=== PATIENT | female | born 1965 | race Caucasian/White ===

== ENCOUNTER 2016-06-25 11:06 | Observation (INO) | payer OTHER ==
[~2016-06-25] VITALS: Ht 167.6 cm; Wt 64.9 kg
[~2016-06-25 11:06] MED LIST: ABL/5 PO; ASCO10003 PO; CARB0.5D OPB; FLUO10CA48 PO; FLUT0.15 NAE; GABA-113 PO; HYDR2.5O TOP; LEVO112T18 PO; LORA5TAB3 PO; LTRCR30 TOP; MELA3TAB12 PO; MODA100T17 PO; MULT-513 PO; NAPR-1169 PO; OMEP20CA9 PO; TRAM-10 PO; TRIA0.5C4 TOP; VNTHFA/IN INH; ZNTT/150 PO; [UNRECOGNIZED DRUG - CODE] TOP
[2016-06-25] MEDS ORDERED: ONDANSETRON INJ 2 MG/ML 2 ML VIAL IV STA (11:17)
[2016-06-25] MEDS ORDERED: SODIUM CHLORIDE 0.9% 1000ML 1,000 ML IV STA (11:17)
--- NOTE | 2016-06-25 11:21 | EMERGENCY ROOM VISIT NOTE ---
History First contact with patient: 11:12 Chief Complaint: VOMITING Stated Complaint: VOMITING Nursing Triage Summary: Pt arrives to ER via BLS with sudden onset nausea/vomitting that began this morning while walking downtown. No other complaints. Denies recent illness. History of Present Illness The patient is a 50 year old female who presents to the Emergency Room with complaints of dizziness, nausea and vomiting. The patient states that she developed dizziness, nausea and vomiting today. She states that the dizziness is constant. She denies any earache, sore throat, cough, fever, neck pain, neck stiffness. She denies any pain in her chest or trouble breathing. She denies any abdominal pain. She denies any urinary symptoms. She denies any headache, numbness, tingling or weakness in the upper or lower extremities. The patient does have a history of CLL. She is not currently receiving treatment. Review of Systems A 10 system review of systems was completed with positives and pertinent negatives listed in the HPI. Past Medical/Surgical History Medical Problems: (1) Anxiety (2) Chronic Lymphoid Leukemia, W/O Mention Achieved Remission (3) CLL (chronic lymphocytic leukemia) (4) Depression (5) Depressive Disorder Nec (6) Diverticulosis Sml Intestine (W/O Ment Of [place]) (7) Esophageal Reflux (8) GERD (gastroesophageal reflux disease) (9) Hypothyroidism (10) Hypothyroidism Nos (11) Lumbago (12) Tobacco Use Disorder Surgical Problems: (1) H/O cystoscopy (2) Status post excision of vocal cord nodule Social History Smoking Status: Never Smoker Alcohol Use: none Marital Status: single Occupation Status: employed Current/Historical Medications Scheduled Ascorbic Acid (Vitamin C), 1,000 MG PO DAILY Clotrimazole (Lotrimin 1%), 1 APPLN TOP UD Fluoxetine (Prozac), 10 MG PO DAILY Fluticasone Propionate (Nasal) (Flonase Allergy Relief), 2 SPRAY DANYELLE DAILY Gabapentin (Neurontin), 300 MG PO DAILY Levothyroxine Sodium (Levothyroxine Sodium), 1 TAB PO DAILY Melatonin-Pyridoxine (Melatonin), 0.5 MG PO HS Modafinil (Provigil), 100 MG PO DAILY Multivitamins/Minerals (Mvi With Minerals), 1 TAB PO DAILY Omeprazole (Prilosec), 20 MG PO DAILY Probiotic Product (Align), 1 CAP PO DAILY Ranitidine (Zantac), 150 MG PO DAILY Triamcinolone Acet (Triamcinolone Acetonide), 1 APPLN TOP PRN UD Ziprasidone Hcl (Geodon), 1 CAP PO DAILY Scheduled PRN Albuterol Hfa (Ventolin Hfa), 2 PUFFS INH QID PRN for SOB/Wheezing Betamethasone Dipropionate Aug (Augmented Betamethasone D), 1 APPLN TOP BID PRN for HANDS Dicyclomine Hcl (Dicyclomine Hcl), 1 CAP PO BID PRN for abdominal pain Hydrocortisone (Topical) (Hydrocortisone), 1 APPLN TOP HS PRN for RASH Loratadine & Pseudoephedrine (Claritin-D 12 Hour), 1 TAB PO BID PRN for Nasal Congestion Naproxen (Naprosyn), 500 MG PO BID PRN for Pain Tramadol (Ultram), 50 MG PO BID PRN for Pain Allergies Coded Allergies: Ferrous Sulfate (Verified Allergy, Unknown, RASH, 06/25/16) INFO FROM [facility] [place] Isoniazid (Verified Allergy, Unknown, 06/25/16) Physical Exam Vital Signs Date Time Temp Pulse Resp B/P Pulse Ox O2 Delivery O2 Flow Rate FiO2 06/25/16 13:14 75 18 123/72 100 Room Air 06/25/16 11:10 36.4 82 16 134/97 99 Room Air Physical Exam VITALS: Vitals are noted on the nurse's note and reviewed by myself. Vital signs stable. GENERAL: This is a 50-year-old female, in no acute distress, nondiaphoretic, well-developed well-nourished. SKIN: The skin was diaphoretic and pale without rashes, erythema, edema, or bruising. There is no tenting of the skin. Capillary reflex less than 2 seconds. HEAD: Normocephalic atraumatic. EARS: External auditory canals clear, tympanic membranes pearly orozco without erythema or effusion bilaterally. EYES: Pupils equal round and reactive to light and accommodation. Conjunctivae without injection, sclerae without icterus. Extraocular movements intact. There is significant horizontal nystatin this. NOSE: Patent, turbinates without inflammation or discharge. MOUTH: Mucous membranes moist. Tonsils are not enlarged. Pharynx without erythema or exudate. Uvula midline. Airway patent. Tongue does not deviate. NECK: Supple without nuchal rigidity. No JVD. HEART: Regular rate and rhythm without murmurs gallops or rubs. LUNGS: Clear to auscultation bilaterally without wheezes, rales or rhonchi. No retractions or accessory muscle use. ABDOMEN: Positive bowel sounds x 4. Soft, nontender, without masses or organomegaly. MUSCULOSKELETAL: No muscle atrophy, erythema, or edema noted. Full range of motion in all extremities. Strength 5/5 throughout. NEURO: Patient was alert and oriented to person place and time. The patient was difficult to perform a formal neurologic examination. She was not cooperative because she stated she was not feeling well. Heel oliveros testing seem to be intact. The patient was not able to perform pronator drift because of vomiting and "not feeling well." Cranial nerves II through XII grossly intact. No focal neurological deficits. Medical Decision & Procedures ER Provider Diagnostic Interpretation: CT HEAD WITHOUT CONTRAST (CT) CLINICAL HISTORY: Dizziness, nausea, vomiting, history of lymphoma. COMPARISON STUDY: 03/16/2010 TECHNIQUE: Axial CT of the brain is performed from the vertex to the skull base. IV contrast was not administered for this examination. CT DOSE: 998.18 mGy.cm FINDINGS: No intra or extra-axial mass lesions are visualized. There is no CT evidence of acute cortical infarction. There is no evidence of midline shift. There is no acute hemorrhage. No calvarial fractures are visualized. There are stable minor white matter hypodensities likely on a small vessel or demyelinating basis. There is no evidence of pathologic ventricular dilatation. There is no evidence of acute sinusitis IMPRESSION: No acute intracranial findings [~ rep ct add3]] CHEST ONE VIEW PORTABLE CLINICAL HISTORY: dizziness, vomiting COMPARISON STUDY: 03/30/2010 FINDINGS: The cardiac and mediastinal contours are normal. There is no evidence of focal pulmonary consolidation. There is no evidence of failure. No pleural effusions are visualized.[ IMPRESSION: No active disease in the chest. Laboratory Results 06/25/16 11:20 Red Blood Count 4.85, Mean Corpuscular Volume 85.8, Mean Corpuscular Hemoglobin 28.2, Mean Corpuscular Hemoglobin Concent 32.9, Mean Platelet Volume 11.4, Neutrophils (%) (Auto) 15.6, Lymphocytes (%) (Auto) 81.2, Monocytes (%) (Auto) 2.7, Eosinophils (%) (Auto) 0.2, Basophils (%) (Auto) 0.2, Neutrophils # (Auto) 5.96, Lymphocytes # (Auto) 31.19, Monocytes # (Auto) 1.05, Eosinophils # (Auto) 0.07, Basophils # (Auto) 0.07 06/25/16 11:20 Test 06/25/16 11:20 White Blood Count 38.39 K/uL (4.8-10.8) Red Blood Count 4.85 M/uL (4.2-5.4) Hemoglobin 13.7 g/dL (12.0-16.0) Hematocrit 41.6 % (37-47) Mean Corpuscular Volume 85.8 fL (80-100) Mean Corpuscular Hemoglobin 28.2 pg (25-34) Mean Corpuscular Hemoglobin Concent 32.9 g/dl (32-36) Platelet Count 218 K/uL (130-400) Mean Platelet Volume 11.4 fL (7.4-10.4) Neutrophils (%) (Auto) 15.6 % Lymphocytes (%) (Auto) 81.2 % Monocytes (%) (Auto) 2.7 % Eosinophils (%) (Auto) 0.2 % Basophils (%) (Auto) 0.2 % Neutrophils # (Auto) 5.96 K/uL (1.4-6.5) Lymphocytes # (Auto) 31.19 K/uL (1.2-3.4) Monocytes # (Auto) 1.05 K/uL (0.11-0.59) Eosinophils # (Auto) 0.07 K/uL (0-0.5) Basophils # (Auto) 0.07 K/uL (0-0.2) RDW Standard Deviation 41.1 fL (36.4-46.3) RDW Coefficient of Variation 13.3 % (11.5-14.5) Immature Granulocyte % (Auto) 0.1 % Immature Granulocyte # (Auto) 0.05 K/uL (0.00-0.02) Smudge Cells PRESENT Prothrombin Time 10.9 SECONDS (9.0-12.0) Prothromb Time International Ratio 1.0 (0.9-1.1) Activated Partial Thromboplast Time 23.3 SECONDS (21.0-31.0) Partial Thromboplastin Ratio 0.9 Anion Gap 7.0 mmol/L (3-11) Est Creatinine Clear Calc Drug Dose 76.6 ml/min Estimated GFR () 95.3 Estimated GFR (Non- 82.2 BUN/Creatinine Ratio 19.5 (10-20) Estimated Average Glucose 126 mg/dl Hemoglobin A1c 6.0 % (4.5-5.6) Calcium Level 8.2 mg/dl (8.5-10.1) Magnesium Level 2.3 mg/dl (1.8-2.4) Total Bilirubin 0.5 mg/dl (0.2-1) Aspartate Amino Transf (AST/SGOT) 20 U/L (15-37) Alanine Aminotransferase (ALT/SGPT) 23 U/L (12-78) Alkaline Phosphatase 67 U/L (45-117) Troponin I < 0.015 ng/ml (0-0.045) Total Protein 6.7 gm/dl (6.4-8.2) Albumin 4.0 gm/dl (3.4-5.0) Globulin 2.7 gm/dl (2.5-4.0) Albumin/Globulin Ratio 1.5 (0.9-2) Lipase 141 U/L (73-393) Thyroid Stimulating Hormone (TSH) 3.970 uIu/ml (0.300-4.500) Medications Administered Medications (Trade) Dose Ordered Sig/Phillip Route Start Time Stop Time Status Last Admin Dose Admin Sodium Chloride (Nss 1000ml) 1,000 ml @ 999 mls/hr Q1H1M STAT IV 06/25/16 11:17 06/25/16 12:17 DC 06/25/16 11:55 999 MLS/HR Ondansetron HCl (Zofran Inj) 4 mg NOW STAT IV 06/25/16 11:17 06/25/16 11:19 DC 06/25/16 11:55 4 MG Diazepam 2.5 mg 2.5 mg NOW STAT IV 06/25/16 13:03 06/25/16 13:04 DC 06/25/16 13:13 2.5 MG Sodium Chloride (Nss 1000ml) 1,000 ml @ 80 mls/hr [id number] IV 06/25/16 13:39 07/25/16 13:38 06/25/16 16:36 80 MLS/HR Procedure The patient was monitored on a lunchroom monitor. They maintained a normal sinus rhythm without ectopy. ECG Indication: vomiting Rate (beats per minute): 75 Rhythm: normal sinus Findings: prolonged QT Change: Prolonged QT is now present ED Course The patient was seen and examined. Previous visits were reviewed. The patient does not have a fever. She does have a leukocytosis of 38.39. This is consistent with her history of CLL. She states that her white blood cell count is around 30,000 chronically. She does not have any significant electrolyte abnormalities. Glucose 162. Troponin was not elevated. Lipase was not elevated. TSH was within normal limits. INR was 1.0. CT scan of the brain does not reveal acute abnormality. There are nonspecific white matter changes. This is known. She has areas of demyelination. Chest x-ray was negative The patient was hydrated with normal saline She was given 4 mg IV Zofran. Once the EKG was obtained, Zofran was not administered again given the prolonged QT The patient was given 2.5 mg IV Valium The patient presented to the emergency department with dizziness, nausea and vomiting. The patient had significant horizontal nystagmus. She was quite diaphoretic and unable to follow commands due to feeling so ill. She was feeling slightly improved with the above treatment. Given the sudden onset of dizziness with no history of similar, history of CLL and nonspecific demyelinating disease, the patient would benefit from further evaluation and management in the hospital. [facility] and [facility] will [facility] the patient. The case was discussed with Dr. Herrera who agrees with the assessment and treatment plan. Medical Decision DIFFERENTIAL DIAGNOSIS: Aortic dissection, myocarditis, pericarditis, cervical disc disease, costochondritis, herpes zoster, rib fracture, pleuritis, pneumonia , pulmonary embolus, tension pneumothorax, anxiety disorder, somatoform disorder , choledocholithiasis, status, esophagitis, esophageal spasm, esophageal reflux , esophageal rupture, pancreatitis, peptic ulcer disease, cardiac ischemia, ST elevation UT, acute coronary syndrome, arrhythmia, coronary artery vasospasm. vavular heart disease, coronary artery disease, CVA, TIA, intracranial bleeding , benign positional vertigo, among others. Impression Primary Impression: Vertigo Departure Information Dispostion Admitted as an inpatient Condition FAIR Referrals Otoniel Guo D.O. (PCP) Patient Instructions [facility]
[2016-06-25 11:44] LABS: PARTIAL THROMBOPLASTIN RATIO 0.9; PROTHROMBIN TIME (PATIENT) 10.9 SECONDS (9.0-12.0)
--- NOTE | 2016-06-25 11:54 | DIAGNOSTIC IMAGING REPORT ---
CHEST ONE VIEW PORTABLE CLINICAL HISTORY: dizziness, vomiting COMPARISON STUDY: 03/30/2010 FINDINGS: The cardiac and mediastinal contours are normal. There is no evidence of focal pulmonary consolidation. There is no evidence of failure. No pleural effusions are visualized.[ IMPRESSION: No active disease in the chest. Electronically signed by: Jun Caldera M.D. 06/25/2016 11:53 AM Dictated Date/Time: 06/25/2016 11:53 AM
[2016-06-25 12:03] LABS: ALT/SGPT 23 U/L (12-78); AST/SGOT 20 U/L (15-37); BLOOD UREA NITROGEN 16 mg/dl (7-18); BUN/CREATININE RATIO 19.5 (10-20); CALCIUM 8.2 mg/dl (8.5-10.1); CARBON DIOXIDE 26 mmol/L (21-32); CHLORIDE 110 mmol/L (98-107); CREATININE 0.84 mg/dl (0.60-1.20); GLUCOSE 162 mg/dl (70-99); HEMATOCRIT 41.6 % (37-47); MAGNESIUM 2.3 mg/dl (1.8-2.4); MEAN CELL VOLUME 85.8 fL (80-100); MEAN CORPUSCULAR HEMOGLOBIN 28.2 pg (25-34); MEAN CORPUSCULAR HGB CONC 32.9 g/dl (32-36); MEAN PLATELET VOLUME 11.4 fL (7.4-10.4); PLATELET COUNT 218 K/uL (130-400); POTASSIUM 3.8 mmol/L (3.5-5.1); RED BLOOD COUNT 4.85 M/uL (4.2-5.4); SODIUM 143 mmol/L (136-145); WHITE BLOOD COUNT 38.39 K/uL (4.8-10.8)
[2016-06-25 12:14] LABS: ALB/GLOB RATIO 1.5 (0.9-2); ALKALINE PHOSPHATASE 67 U/L (45-117)
--- NOTE | 2016-06-25 12:15 | DIAGNOSTIC IMAGING REPORT ---
CT HEAD WITHOUT CONTRAST (CT) CLINICAL HISTORY: Dizziness, nausea, vomiting, history of lymphoma. COMPARISON STUDY: 03/16/2010 TECHNIQUE: Axial CT of the brain is performed from the vertex to the skull base. IV contrast was not administered for this examination. CT DOSE: 998.18 mGy.cm FINDINGS: No intra or extra-axial mass lesions are visualized. There is no CT evidence of acute cortical infarction. There is no evidence of midline shift. There is no acute hemorrhage. No calvarial fractures are visualized. There are stable minor white matter hypodensities likely on a small vessel or demyelinating basis. There is no evidence of pathologic ventricular dilatation. There is no evidence of acute sinusitis IMPRESSION: No acute intracranial findings Electronically signed by: Jun Caldera M.D. 06/25/2016 12:14 PM Dictated Date/Time: 06/25/2016 12:11 PM
[2016-06-25] MEDS ORDERED: LEVO112T4 PO (12:21)
[2016-06-25] MEDS ORDERED: DIAZEPAM INJ 5 MG/ML 2 ML CARP IV STA ×2 (12:21→13:03)
[2016-06-25 12:39] LABS: BASO % 0.2 %; BASO ABS # 0.07 K/uL (0-0.2); COMPLETE YES; EOS % 0.2 %; IG% 0.1 %; LYMPH % 81.2 %; LYMPH ABS # 31.19 K/uL (1.2-3.4); MONO % 2.7 %; NEUT % 15.6 %; SMUDGE CELLS PRESENT
[2016-06-25] MEDS ORDERED: ACETAMINOPHEN 325 MG TAB PO PRN (13:45)
[2016-06-25] MEDS ORDERED: PROMETHAZINE HCL INJ 12.5 MG in SODIUM CHLORIDE 0.9% 50ML 50 ML IV PRN (14:00)
[2016-06-25] MEDS ORDERED: MECLIZINE HCL 25 MG TAB PO PRN (14:00)
[2016-06-25] MEDS ORDERED: PHARMACIST DISCHARGE MED REC CONSULT PRN (14:00)
[2016-06-25] MEDS ORDERED: MISC4CAP PO (14:01)
[2016-06-25] MEDS ORDERED: DICY10CA12 PO (14:01)
[2016-06-25] MEDS ORDERED: LEVO125T5 PO (14:01)
[2016-06-25] MEDS ORDERED: ZIPR20CA PO (14:01)
[2016-06-25] MEDS ORDERED: IV FLUIDS COMPLETED PRN (14:15)
--- NOTE | 2016-06-25 14:22 | History and Physical ---
History & Physical Date & Time of Service: June 25, 2016 at 14:08 Chief Complaint: Dizziness, Vomiting Primary Care Physician: Otoniel Guo D.O. History of Present Illness 50 year old female who presents to the ER with a chief complaint of dizziness and vomiting. Patient reports she was walking at work when she suddenly developed dizziness, nausea, and vomiting. Patient describes everything as spinning and that she couldn't see correctly. She reports she felt generally weak and denied any unilateral weakness, numbness, tingling, or slurred speech. She denies headache. She felt diaphoretic. She had multiple episodes of vomiting. She denies hematemesis or coffee ground emesis. She reports she otherwise has been feeling well recently. She denies chest pain and shortness of breath. No abdominal pain or diarrhea. No fever or chills. She denies any urinary symptoms. In the ER, patient's head CT is negative. She was treated with IVF, Zofran, and Valium and reports improvement in her symptoms. Past Medical/Surgical History Medical Problems: (1) Anxiety Status: Chronic (2) CLL (chronic lymphocytic leukemia) Status: Chronic (3) Depression Status: Chronic (4) GERD (gastroesophageal reflux disease) Status: Chronic (5) Hypothyroidism Status: Chronic Surgical Problems: (1) H/O cystoscopy Status: Chronic (2) Status post excision of vocal cord nodule Status: Chronic Family History FH: stomach cancer MOTHER Hypertension MOTHER Stroke FATHER Social History Smoking Status: Never Smoker Alcohol Use: none Immunizations History of Influenza Vaccine: Yes Influenza Vaccine Date: Oct 22, 2015 History of Tetanus Vaccine?: Yes Tetanus Immunization Date: May 12, 2012 History of Pneumococcal: Yes Pneumococcal Date: May 06, 2015 Multi-Drug Resistant Organisms History of MDRO: No Allergies Coded Allergies: Ferrous Sulfate (Verified Allergy, Unknown, RASH, 06/25/16) INFO FROM [facility] [place] Isoniazid (Verified Allergy, Unknown, 06/25/16) Home Medications Scheduled Ascorbic Acid (Vitamin C), 1,000 MG PO DAILY Aspirin (Aspirin Ec), 1 TAB PO DAILY Clotrimazole (Lotrimin 1%), 1 APPLN TOP UD Fluoxetine (Prozac), 10 MG PO DAILY Fluticasone Propionate (Nasal) (Flonase Allergy Relief), 2 SPRAY DANYELLE DAILY Gabapentin (Neurontin), 300 MG PO DAILY Levothyroxine Sodium (Levothyroxine Sodium), 1 TAB PO DAILY Melatonin-Pyridoxine (Melatonin), 0.5 MG PO HS Modafinil (Provigil), 100 MG PO DAILY Multivitamins/Minerals (Mvi With Minerals), 1 TAB PO DAILY Omeprazole (Prilosec), 20 MG PO DAILY Probiotic Product (Align), 1 CAP PO DAILY Ranitidine (Zantac), 150 MG PO DAILY Triamcinolone Acet (Triamcinolone Acetonide), 1 APPLN TOP PRN UD Ziprasidone Hcl (Geodon), 1 CAP PO DAILY Scheduled PRN Albuterol Hfa (Ventolin Hfa), 2 PUFFS INH QID PRN for SOB/Wheezing Betamethasone Dipropionate Aug (Augmented Betamethasone D), 1 APPLN TOP BID PRN for HANDS Dicyclomine Hcl (Dicyclomine Hcl), 1 CAP PO BID PRN for abdominal pain Hydrocortisone (Topical) (Hydrocortisone), 1 APPLN TOP HS PRN for RASH Loratadine & Pseudoephedrine (Claritin-D 12 Hour), 1 TAB PO BID PRN for Nasal Congestion Naproxen (Naprosyn), 500 MG PO BID PRN for Pain Tramadol (Ultram), 50 MG PO BID PRN for Pain Review of Systems ROS per HPI, all other systems reviewed and negative Physical Exam Vital Signs Date Time Temp Pulse Resp B/P Pulse Ox O2 Delivery O2 Flow Rate FiO2 06/25/16 13:14 75 18 123/72 100 Room Air 06/25/16 11:10 36.4 82 16 134/97 99 Room Air General Appearance: no apparent distress Head: normocephalic Eyes: + pertinent finding (vertical nystagmus) ENT: hearing grossly normal Neck: supple, no JVD Respiratory/Chest: lungs clear, normal breath sounds, no respiratory distress Cardiovascular: regular rate, rhythm, no edema, normal peripheral pulses Abdomen/GI: normal bowel sounds, non tender, soft Extremities/Musculoskelatal: normal inspection, no calf tenderness Neurologic/Psych: no motor/sensory deficits, alert, normal mood/affect, oriented x 3 Skin: normal color, warm/dry Diagnostics Laboratory Results Results Past 24 Hours Test 06/25/16 11:20 06/25/16 13:46 Range/Units White Blood Count 38.39 4.8-10.8 K/uL Red Blood Count 4.85 4.2-5.4 M/uL Hemoglobin 13.7 12.0-16.0 g/dL Hematocrit 41.6 37-47 % Mean Corpuscular Volume 85.8 80-100 fL Mean Corpuscular Hemoglobin 28.2 25-34 pg Mean Corpuscular Hemoglobin Concent 32.9 32-36 g/dl Platelet Count 218 130-400 K/uL Mean Platelet Volume 11.4 7.4-10.4 fL Neutrophils (%) (Auto) 15.6 % Lymphocytes (%) (Auto) 81.2 % Monocytes (%) (Auto) 2.7 % Eosinophils (%) (Auto) 0.2 % Basophils (%) (Auto) 0.2 % Neutrophils # (Auto) 5.96 1.4-6.5 K/uL Lymphocytes # (Auto) 31.19 1.2-3.4 K/uL Monocytes # (Auto) 1.05 0.11-0.59 K/uL Eosinophils # (Auto) 0.07 0-0.5 K/uL Basophils # (Auto) 0.07 0-0.2 K/uL RDW Standard Deviation 41.1 36.4-46.3 fL RDW Coefficient of Variation 13.3 11.5-14.5 % Immature Granulocyte % (Auto) 0.1 % Immature Granulocyte # (Auto) 0.05 0.00-0.02 K/uL Smudge Cells PRESENT Prothrombin Time 10.9 9.0-12.0 SECONDS Prothromb Time International Ratio 1.0 0.9-1.1 Activated Partial Thromboplast Time 23.3 21.0-31.0 SECONDS Partial Thromboplastin Ratio 0.9 Sodium Level 143 136-145 mmol/L Potassium Level 3.8 3.5-5.1 mmol/L Chloride Level 110 98-107 mmol/L Carbon Dioxide Level 26 21-32 mmol/L Anion Gap 7.0 3-11 mmol/L Blood Urea Nitrogen 16 7-18 mg/dl Creatinine 0.84 0.60-1.20 mg/dl Est Creatinine Clear Calc Drug Dose 76.6 ml/min Estimated GFR () 95.3 Estimated GFR (Non- 82.2 BUN/Creatinine Ratio 19.5 10-20 Random Glucose 162 70-99 mg/dl Calcium Level 8.2 8.5-10.1 mg/dl Magnesium Level 2.3 1.8-2.4 mg/dl Total Bilirubin 0.5 0.2-1 mg/dl Aspartate Amino Transf (AST/SGOT) 20 15-37 U/L Alanine Aminotransferase (ALT/SGPT) 23 12-78 U/L Alkaline Phosphatase 67 45-117 U/L Troponin I < 0.015 0-0.045 ng/ml Total Protein 6.7 6.4-8.2 gm/dl Albumin 4.0 3.4-5.0 gm/dl Globulin 2.7 2.5-4.0 gm/dl Albumin/Globulin Ratio 1.5 0.9-2 Lipase 141 73-393 U/L Thyroid Stimulating Hormone (TSH) 3.970 0.300-4.500 uIu/ml Diagnostic Radiology CT HEAD IMPRESSION: No acute intracranial findings CXR IMPRESSION: No active disease in the chest. Impression Assessment and Plan DIZZINESS, LIKELY BPPV - admit to tele - patient presenting with sudden onset of dizziness and vomiting; CT head in ER negative; patient improving with IVF, Zofran, and Valium - suspect symptoms are due to BPPV however will rule out posterior CVA with MRI/ MRA; neuro checks - patient follows with Dr. Ashley for chronic white matter changes notes on brain MRIs[facility] - continue supportive care with IVF, antiemetics, and meclizine - PT consulted for Romina PROLONGED QTC - 489 - check daily EKG, avoid QTC prolonging agents HX CLL - baseline WBCs ~ high 20Ks-low 30Ks - noted to be 38K today, likely due to stress from acute illness - monitor CBC daily DEPRESSION, ANXIETY - continue home meds GERD - continue PPI and H2 blair DVT PROPHYLAXIS - SQ Lovenox DISPO - The patient will be placed as observation status for now until further work up is complete. ATTENDING NOTE ; records reviewed pt interviewed and examined care coordinated with Sera BENAVIDES please see her documentation for detail patient history Briefly -50 yo F with past medical hx of CLL , non specific demyelinating disease presented to [facility] ED with complain of sudden onset of dizzy spell , associated with nausea /vomiting , blurred vision no weakness or paresthesia of limbs , no loss or consciousness her symptom resolved after IV hydration in ED CT head w/out contrast -no acute change noted P/E: GEN ;no sign of distress HEENT; sclera non icteric , PERRLA/EOMI HT: regular S1/S2 LUNGS: CTA ,no wheeze or rales ABDOMEN: soft, non tender EXTREMITY : no rash or deformity NEURO: AAO x3, no focal neurological deficit , normal speech , normal strength A/P : Dizzy spell : clinically no evidence of neurological deficit , no symptom of CVA noted possible BPPV ? pt also mentions of wave of nausea with dizzy spell while [place] -temp was > 80 F may have a component of vasovagal syncope cont to monitor in Tele ; R/o arrhythmia IVF to correct possible underlying dehydration PT eval requested for Romina pt follows with Neurology at [facility] for hx of non specific demyelination disease Last MRI was done in 2013 MRI /MRA of brain ordered neurology consult requested Full code expected to be discharged home when medically stable please refer to H&P by Sera Cohen for further detail/discussion of other issues Kat Mendiola MD Level of Care Telemetry Resuscitation Status FULL RESUSCITATION VTE Prophylaxis VTE Risk Assessment Done? Y/N: Yes Risk Level: Moderate Given or contraindicated: Enoxaparin (Lovenox)SQ Additional Copies To Otoniel Guo D.O.
[2016-06-25 14:34] LABS: ESTIMATED AVERAGE GLUCOSE 126 mg/dl; HA1C FLAG Normal (Normal)
--- NOTE | 2016-06-25 15:40 | DIAGNOSTIC IMAGING REPORT ---
MR ANGIOGRAPHY OF THE [place] NO CONTRAST CLINICAL HISTORY: Stroke like symptoms. Vomiting. COMPARISON STUDY: None. A 3-D [id number] MR angiographic sequence of the [place] was performed. Both the source and projection images were reviewed. There is no evidence of major intracranial branch occlusion. There is no evidence of intracranial stenosis. There are no lesions suspicious for aneurysm. IMPRESSION: Unremarkable MR angiography of the [place]. Electronically signed by: Jun Caldera M.D. 06/25/2016 3:39 PM Dictated Date/Time: 06/25/2016 3:37 PM
[2016-06-25] MEDS ORDERED: GADAVIST IV PRN (15:45)
[2016-06-25] MEDS ORDERED: ONDANSETRON INJ 2 MG/ML 2 ML VIAL ONE (15:52)
--- NOTE | 2016-06-25 15:58 | DIAGNOSTIC IMAGING REPORT ---
Brain MRI WITH AND WITHOUT CONTRAST HISTORY: Vomiting. Stroke symptoms. TECHNIQUE: Multiplanar multisequence MRI of the brain was performed both before and after the intravenous administration of contrast. COMPARISON STUDY: Head CT 06/25/2016. Brain MRI 03/08/2013. FINDINGS: There are no areas of restricted diffusion to suggest acute infarction. The midline structures are intact. The paranasal sinuses are clear. The mastoid air cells are clear. The ventricles and sulci are within normal limits for age. There is no mass, hematoma, midline shift. The major vascular flow-voids at the skull base are well maintained. Postcontrast sequences show no areas of abnormal enhancement. No change in the scattered punctate foci of T2 hyperintensity seen within the subcortical and periventricular white matter.. IMPRESSION: No significant change compared to the prior study. No acute intracranial abnormality. Stable scattered foci of nonspecific demyelination within the white matter of the supratentorial brain. Electronically signed by: Dat Stokes M.D. 06/25/2016 3:56 PM Dictated Date/Time: 06/25/2016 3:47 PM
[2016-06-25 16:00] VITALS: BP 133/73; PULSE 78; TEMP 36.5; O2SAT 99; Ht 167.6 cm; Wt 64.9 kg
[2016-06-25] MEDS ORDERED: NURSING VERBAL MED ORDER ONE (16:00)
[2016-06-25] MEDS ORDERED: ONDANSETRON INJ 6 MG in DEXTROSE 5% 50ML 50 ML IV PRN (16:00)
[2016-06-25 16:27] VITALS: BP 126/81; PULSE 84; TEMP 36.7
[2016-06-25] MEDS: SODIUM CHLORIDE 0.9% 1000ML 1,000 ML IV SCH (16:36)
[2016-06-25 20:05] VITALS: BP 122/81; PULSE 75; TEMP 36.7; O2SAT 99
[2016-06-25] MEDS ORDERED: ENOXAPARIN 40 MG/0.4 ML SYR SC SCH (21:00)
[2016-06-25 23:52] VITALS: BP 144/83; PULSE 82; TEMP 36.7; O2SAT 97
[2016-06-25 23:59] VITALS: O2SAT 97
[2016-06-26] VITALS (8 sets, daily range): BP systolic 128–136; BP diastolic 72–83; PULSE 76–89; TEMP 36.6–37.4; O2SAT 95–99
[2016-06-26] MEDS: SODIUM CHLORIDE 0.9% 1000ML 1,000 ML IV SCH (02:09)
[2016-06-26] MEDS ORDERED: LEVOTHYROXINE 125 MCG TAB PO SCH (06:00)
[2016-06-26 06:10] LABS: HEMATOCRIT 37.7 % (37-47); MEAN CELL VOLUME 86.1 fL (80-100); MEAN CORPUSCULAR HEMOGLOBIN 28.5 pg (25-34); MEAN CORPUSCULAR HGB CONC 33.2 g/dl (32-36); MEAN PLATELET VOLUME 11.3 fL (7.4-10.4); PLATELET COUNT 193 K/uL (130-400); RED BLOOD COUNT 4.38 M/uL (4.2-5.4); WHITE BLOOD COUNT 32.58 K/uL (4.8-10.8)
[2016-06-26 06:30] LABS: MANUAL MICROSCOPIC REQUIRED? NO; URINE APPEARANCE CLEAR (CLEAR); URINE BILIRUBIN NEG (NEG); URINE COLOR YELLOW; URINE NITRITE NEG (NEG); URINE SPECIFIC GRAVITY 1.025 (1.000-1.030); UROBILINOGEN NEG (NEG)
[2016-06-26 06:31] LABS: REVIEW REQ? NO
[2016-06-26 06:35] LABS: BUN/CREATININE RATIO 18.9 (10-20); CREATININE 0.62 mg/dl (0.60-1.20); POTASSIUM 3.3 mmol/L (3.5-5.1)
[2016-06-26 06:37] LABS: ZZUR CULT IF INDIC CLEAN CATCH NO
[2016-06-26 06:38] LABS: CHOLESTEROL/HDL RATIO 2.6
[2016-06-26 07:25] LABS: BASO % 0.1 %; BASO ABS # 0.04 K/uL (0-0.2); COMPLETE YES; EOS % 0.2 %; IG% 0.2 %; LYMPH % 72.9 %; LYMPH ABS # 23.76 K/uL (1.2-3.4); MONO % 3.2 %; NEUT % 23.4 %
[2016-06-26] MEDS ORDERED: MODAFINIL 100 MG TAB PO SCH (09:00)
[2016-06-26] MEDS ORDERED: RANITIDINE HCL 150 MG TAB PO SCH (09:00)
[2016-06-26] MEDS ORDERED: GABAPENTIN 300 MG CAP PO SCH (09:00)
[2016-06-26] MEDS ORDERED: FLUOXETINE HCL 10 MG CAP PO SCH (09:00)
[2016-06-26] MEDS ORDERED: CEROVITE ADV FORMULA TAB PO SCH (09:00)
[2016-06-26] MEDS ORDERED: LACTOBACILLUS ACIDOPHILUS (FLORANEX) TAB PO SCH (09:00)
[2016-06-26] MEDS ORDERED: ASCORBIC ACID 500 MG TAB PO SCH (09:00)
[2016-06-26] MEDS ORDERED: ZIPRASIDONE 20 MG CAP PO SCH (09:00)
[2016-06-26] MEDS ORDERED: PANTOprazole SOD 40 MG TAB PO SCH (09:00)
[2016-06-26] MEDS ORDERED: NURSING VERBAL MED ORDER ONE ×2 (09:15→11:45)
[2016-06-26] MEDS ORDERED: ASPIRIN 81 MG CHEW PO STA (09:29)
--- NOTE | 2016-06-26 09:46 | DIAGNOSTIC IMAGING REPORT ---
CT SCAN OF THE BRAIN WITHOUT IV CONTRAST CLINICAL HISTORY: Left facial droop. COMPARISON STUDY: CT of the brain dated 06/25/2016. MRI of the brain dated 06/25/2016. TECHNIQUE: Unenhanced axial CT scan of the brain is performed from the vertex to the skull base. Automated dose control exposure was utilized. CT DOSE: 614.27 mGy.cm FINDINGS: Brain parenchyma: The brain parenchyma is normal in appearance. There is no hemorrhage, mass effect, or evidence of acute territorial ischemia by CT criteria. [place]-white matter is preserved. No extra-axial fluid collection is seen. Ventricles, sulci, cisterns: Normal in configuration. Intracranial vasculature: The visualized intracranial vasculature at the skull base is normal in appearance. Calvarium: Unremarkable. Sinuses and mastoids: The visualized paranasal sinuses are clear. The mastoid air cells are well pneumatized. Orbits: The bony orbits are grossly intact. IMPRESSION: There is no hemorrhage, mass effect, or evidence of acute territorial ischemia by CT criteria. No significant change from yesterday's examinations. Electronically signed by: Carlton Zaman M.D. 06/26/2016 9:44 AM Dictated Date/Time: 06/26/2016 9:38 AM
--- NOTE | 2016-06-26 10:11 | Neurology Consultation ---
Neurology Consultation Date of Consultation: June 26, 2016. Attending Physician: Kat Mendiola M.D. Primary Care Physician: Otoniel Guo D.O. Reason for Consultation: Consultation for vertigo History of Present Illness Source: patient, clinic records, hospital records This is a 50-year-old female who presents with severe vertigo and vomiting that started yesterday morning. She has been seen in the past by Dr. Ashley in clinic for various nonspecific symptoms such as muscle pain, chronic back pain, and stable nonspecific white matter changes on MRI with no recommended follow-up when she was last seen in December. Patient also reports that she has a history of migraine headaches but has never taken prescription medication for migraines. She reports that she had sudden onset of vertigo and vomiting yesterday morning. She describes it as movement or spinning. Worse with movement. Severe vomiting in association. Feels weak all over. She denies any recent illnesses. Denies any changes with her hearing. She has had some nonspecific changes with her vision in association with the vertigo symptoms. No trouble eating or swallowing. No focal numbness or weakness. This morning patient also reports a new type of headache in the left V1 area and numbness over the left V1 and V2 area of her face. She describes the headache as sharp/stabbing. No migrainous components. She reports that she has never had a headache like this before. No new neurological changes in association. No ear pain. No skin changes. She has no facial weakness. No changes in speech. MRI of the brain report and images and MRA of the brain from yesterday were reviewed by myself. Overall unremarkable MRI of the brain. Note acute or chronic strokes. Patient does have a few nonspecific T2 hyperintensities in the subcortical white matter. Past Medical/Surgical History Medical Problems: (1) Vertigo Status: Acute History of CLL, anxiety, hypothyroid Family History Family history of hypertension and stroke Social History Patient is normally independent in her activities of daily living. No alcohol or tobacco use Smoking Status: Never smoker Alcohol Use: none Allergies Coded Allergies: Ferrous Sulfate (Verified Allergy, Unknown, RASH, 06/25/16) INFO FROM [facility] [place] Isoniazid (Verified Allergy, Unknown, 06/25/16) Current Inpatient Medications Current Inpatient Medications Medications (Trade) Dose Ordered Sig/Phillip Route Start Time Stop Time Status Last Admin Dose Admin Enoxaparin Sodium 40 mg 40 mg Q24H SC 06/25/16 21:00 07/25/16 20:59 06/25/16 21:20 40 MG Sodium Chloride (Nss 1000ml) 1,000 ml @ 80 mls/hr [id number] IV 06/25/16 13:39 07/25/16 13:38 06/26/16 02:09 80 MLS/HR Acetaminophen (Tylenol Tab) 650 mg Q4H PRN PO 06/25/16 13:45 07/25/16 13:44 Miscellaneous Information 1 ea 1 ea UD PRN N/A 06/25/16 14:00 07/25/16 13:59 Promethazine HCl/ Sodium Chloride (Phenergan Inj/ Nss 50ml) 50.5 ml @ 204 mls/hr Q6H PRN IV 06/25/16 14:00 07/25/16 13:59 Meclizine HCl (Antivert Tab) 25 mg TID PRN PO 06/25/16 14:00 07/25/16 13:59 Fluoxetine HCl (Prozac Cap) 10 mg DAILY PO 06/26/16 09:00 07/26/16 08:59 06/26/16 08:44 10 MG Gabapentin (Neurontin Cap) 300 mg DAILY PO 06/26/16 09:00 07/26/16 08:59 06/26/16 08:43 300 MG Levothyroxine Sodium (Synthroid Tab) 125 mcg DAILYBB PO 06/26/16 06:00 07/26/16 06:59 06/26/16 05:44 125 MCG Modafinil (proVIGIL TAB) 100 mg DAILY PO 06/26/16 09:00 07/26/16 08:59 06/26/16 08:43 100 MG Multivitamins/ Minerals (Multivitamin W/ Minerals Tab) 1 tab DAILY PO 06/26/16 09:00 07/26/16 08:59 06/26/16 08:44 1 TAB Ranitidine HCl (zANTac TAB) 150 mg DAILY PO 06/26/16 09:00 07/26/16 08:59 06/26/16 08:44 150 MG Ziprasidone (Geodon Cap) 20 mg DAILY PO 06/26/16 09:00 07/26/16 08:59 06/26/16 08:44 20 MG Ascorbic Acid (Vitamin C Tab) 1,000 mg DAILY PO 06/26/16 09:00 07/26/16 08:59 06/26/16 08:44 1,000 MG Pantoprazole Sodium (Protonix Tab) 40 mg QAM PO 06/26/16 09:00 07/26/16 08:59 06/26/16 08:44 40 MG Lactobacillus Acidophilus (Floranex Tab) 1 tab DAILY PO 06/26/16 09:00 07/26/16 08:59 06/26/16 08:44 1 TAB Miscellaneous (Iv Fluids Completed) 1 ea PRN PRN N/A 06/25/16 14:15 06/25/17 14:14 Gadobutrol 6.5 mmol 6.5 mmol UD PRN IV 06/25/16 15:45 06/29/16 15:44 Ondansetron HCl/ Dextrose (Zofran Inj/D5 50ml) 53 ml @ 216 mls/hr Q4H PRN IV 06/25/16 16:00 07/25/16 15:59 06/25/16 20:01 216 MLS/HR Review of Systems Complete review of systems otherwise negative except for the above noted in history of present illness Physical Exam Vital Signs (Past 24 Hrs): Date Time Temp Pulse Resp B/P Pulse Ox O2 Delivery O2 Flow Rate FiO2 06/26/16 07:45 36.6 85 16 131/72 97 Room Air 06/26/16 04:43 37.4 89 22 136/83 97 Room Air 06/26/16 04:00 97 Room Air 06/25/16 23:59 97 Room Air 06/25/16 23:52 36.7 82 22 144/83 97 Room Air 06/25/16 20:05 36.7 75 20 122/81 99 Room Air 06/25/16 16:27 36.7 84 18 126/81 06/25/16 16:00 36.5 78 18 133/73 99 Room Air 06/25/16 14:33 86 18 122/68 100 06/25/16 13:14 75 18 123/72 100 Room Air 06/25/16 11:10 36.4 82 16 134/97 99 Room Air Gen.: Patient is alert and sitting in bed, in no acute distress. HEENT: Normocephalic /atraumatic, no scleral icterus Heart: Regular rate and rhythm Extremities: No gross deformities or rashes noted Neurological examination: Mental status: Patient is alert and oriented x3. Attention and concentration normal for the situation. Good fund of knowledge. Able to give her own history. Speech is fluent without any dysarthria or aphasia noted Cranial nerve: Funduscopic examination was unremarkable. No papilledema. Pupils equally round and reactive to light. Extraocular muscles intact. Significant prolonged nystagmus when looking to the right but eventually does slow down. Dizziness worse when turning head to the right compared to the left. No facial asymmetry noted. Facial sensation intact. Tongue is midline. Good palatal elevation. Good shoulder shrug bilaterally. Hearing grossly intact to voice. Strength: 5/5 both proximal and distally in all extremities. There is no arm drift. Tone is normal. Sensation: Grossly intact to light touch in all extremities. Deep tendon reflexes: +2 in bilateral biceps, brachioradialis and patellar. Coordination: Patient had good finger to nose without dysmetria Station within the bed was normal Laboratory Results Past 24 Hours: 06/26/16 05:49 Red Blood Count 4.38, Mean Corpuscular Volume 86.1, Mean Corpuscular Hemoglobin 28.5, Mean Corpuscular Hemoglobin Concent 33.2, Mean Platelet Volume 11.3, Neutrophils (%) (Auto) 23.4, Lymphocytes (%) (Auto) 72.9, Monocytes (%) (Auto) 3.2, Eosinophils (%) (Auto) 0.2, Basophils (%) (Auto) 0.1, Neutrophils # (Auto) 7.59, Lymphocytes # (Auto) 23.76, Monocytes # (Auto) 1.05, Eosinophils # (Auto) 0.07, Basophils # (Auto) 0.04 06/26/16 05:49 Test 06/25/16 11:20 06/26/16 05:49 06/26/16 06:18 Smudge Cells PRESENT Prothrombin Time 10.9 SECONDS (9.0-12.0) Prothromb Time International Ratio 1.0 (0.9-1.1) Activated Partial Thromboplast Time 23.3 SECONDS (21.0-31.0) Partial Thromboplastin Ratio 0.9 Estimated Average Glucose 126 mg/dl Hemoglobin A1c 6.0 % (4.5-5.6) Magnesium Level 2.3 mg/dl (1.8-2.4) Total Bilirubin 0.5 mg/dl (0.2-1) Aspartate Amino Transf (AST/SGOT) 20 U/L (15-37) Alanine Aminotransferase (ALT/SGPT) 23 U/L (12-78) Alkaline Phosphatase 67 U/L (45-117) Troponin I < 0.015 ng/ml (0-0.045) Total Protein 6.7 gm/dl (6.4-8.2) Albumin 4.0 gm/dl (3.4-5.0) Globulin 2.7 gm/dl (2.5-4.0) Albumin/Globulin Ratio 1.5 (0.9-2) Lipase 141 U/L (73-393) Thyroid Stimulating Hormone (TSH) 3.970 uIu/ml (0.300-4.500) White Blood Count 32.58 K/uL (4.8-10.8) Red Blood Count 4.38 M/uL (4.2-5.4) Hemoglobin 12.5 g/dL (12.0-16.0) Hematocrit 37.7 % (37-47) Mean Corpuscular Volume 86.1 fL (80-100) Mean Corpuscular Hemoglobin 28.5 pg (25-34) Mean Corpuscular Hemoglobin Concent 33.2 g/dl (32-36) Platelet Count 193 K/uL (130-400) Mean Platelet Volume 11.3 fL (7.4-10.4) Neutrophils (%) (Auto) 23.4 % Lymphocytes (%) (Auto) 72.9 % Monocytes (%) (Auto) 3.2 % Eosinophils (%) (Auto) 0.2 % Basophils (%) (Auto) 0.1 % Neutrophils # (Auto) 7.59 K/uL (1.4-6.5) Lymphocytes # (Auto) 23.76 K/uL (1.2-3.4) Monocytes # (Auto) 1.05 K/uL (0.11-0.59) Eosinophils # (Auto) 0.07 K/uL (0-0.5) Basophils # (Auto) 0.04 K/uL (0-0.2) RDW Standard Deviation 42.4 fL (36.4-46.3) RDW Coefficient of Variation 13.5 % (11.5-14.5) Immature Granulocyte % (Auto) 0.2 % Immature Granulocyte # (Auto) 0.07 K/uL (0.00-0.02) Anion Gap 9.0 mmol/L (3-11) Est Creatinine Clear Calc Drug Dose 103.8 ml/min Estimated GFR () 123.6 Estimated GFR (Non- 106.6 BUN/Creatinine Ratio 18.9 (10-20) Calcium Level 8.0 mg/dl (8.5-10.1) Triglycerides Level 103 mg/dl (0-150) Cholesterol Level 149 mg/dl (0-200) HDL Cholesterol 57 mg/dl LDL Cholesterol, Calculated 71 mg/dl VLDL Cholesterol, Calculated 21 mg/dl Cholesterol/HDL Ratio 2.6 Urine Color YELLOW Urine Appearance CLEAR (CLEAR) Urine pH 6.0 (4.5-7.5) Urine Specific [place] 1.025 (1.000-1.030) Urine Protein NEG (NEG) Urine Glucose (UA) NEG (NEG) Urine Ketones 3+ (NEG) Urine Occult Blood NEG (NEG) Urine Nitrite NEG (NEG) Urine Bilirubin NEG (NEG) Urine Urobilinogen NEG (NEG) Urine Leukocyte Esterase NEG (NEG) Imaging As noted above in history of present illness Impression This is a 50-year-old female with signs and symptoms consistent with benign positional vertigo and possibly vestibular neuritis on the right. No signs of central causes for the patient's vertigo symptoms. 2) left-sided neuralgiform headache versus migraine this morning only Plan Agree with treating symptoms with meclizine. If Meclizine is ineffective, could consider scopolamine patch versus Ativan. Symptomatically treatment with antinausea medications. Recommend physical therapy for vestibular retraining May treat headaches with NSAIDs. Please call neurology consult back if headaches are not improved with conservative treatment. If symptoms worsen or if new symptoms, could consider repeat MRI of the brain with contrast. Consider aspirin 81 mg daily in the setting of nonspecific T2 hyperintensities that could indicate small vessel ischemic disease. No additional neurological recommendations at this time. If there is any questions or concerns, feel free to call/page me.
[2016-06-26] MEDS ORDERED: ASPI81TA28 PO (11:32)
--- NOTE | 2016-06-26 11:33 | Discharge Instructions ---
Discharge Instructions Date of Service June 26, 2016. Admission Reason for Admission: Vertigo Discharge Discharge Diagnosis / Problem: DIZZY SPELL , POSIBILE BENIGN POSITIONAL VERTIGO Discharge Goals Goal(s): Improve disease control, Diagnostic testing Activity Recommendations Activity Limitations: resume your previous activity . Instructions / Follow-Up Instructions / Follow-Up HOSPITAL FOLLOW UP ON 06/29/2016 @ 11:[address] Otoniel Guo, DO General Internal Medicine [facility] YOU STARTED ON ASPIRIN LOW DOSE 81 MG DAILY FOR FUTURE STROKE PROPHYLAXIS PLEASE TAKE WITH FULL STOMACH YOU MAY TAKE MECLIZINE 25 MG BY MOUTH EVERY 8 HRS NEED FOR DIZZY SPELL FOLLOW UP WITH YOUR NEUROLOGIST DR HORTON IN 1-2 WEEKS,PLEASE CALL OFFICE FOR APPOINTMENT Current Hospital Diet Patient's current hospital diet: Regular Diet Discharge Diet Recommended Diet: Regular Diet Pending Studies Studies pending at discharge: no Laboratory Results Hemoglobin A1c Test 06/25/16 11:20 Range/Units Estimated Average Glucose 126 mg/dl Hemoglobin A1c 6.0 H 4.5-5.6 % Lipid Panel Test 06/26/16 05:49 Range/Units Triglycerides Level 103 0-150 mg/dl Cholesterol Level 149 0-200 mg/dl HDL Cholesterol 57 mg/dl Cholesterol/HDL Ratio 2.6 LDL Cholesterol, Calculated 71 mg/dl Medical Emergencies . Who to Call and When: Medical Emergencies: If at any time you feel your situation is an emergency, please call 911 immediately. . Non-Emergent Contact Non-Emergency issues call your: Primary Care Provider . . "Provider Documentation" section prepared by Kat Mendiola. . VTE Core Measure Inpt VTE Proph given/why not?: Enoxaparin (Lovenox)SQ
[2016-06-26] MEDS ORDERED: POTASSIUM CHLORIDE 20 MEQ TABCR PO STA (11:40)
[2016-06-26] MEDS ORDERED: ANT25 PO (11:51)
--- NOTE | 2016-06-26 16:09 | Progress Note ---
Internal Med Progress Note Date of Service: June 26, 2016. Provider Documentation: SUBJECTIVE: no complain of dizzy spell or lightheadedness no visual symptoms feels fine ready to go home today OBJECTIVE: Vital Signs-as noted below Exam: General-no sign of distress Eyes-sclera non icteric , PERRLA/EOMI ENT-NAD Neck-no JVD no carotid bruit Lungs-CTA ,no wheeze or rales Heart-regular S1/S2 Abdomen-soft, non tender Extremities-no rash or deformity Neuro-AAO x3, no focal neurological deficit Lab data as noted below. ASSESSMENT & PLAN: DIZZINESS, LIKELY BPPV - patient presented with sudden onset of dizziness and vomiting; CT head in ER negative; patient improving with IVF, Zofran, and Valium - symptom has resolved since admission, feels much better after getting IVF -MRI /MRA of brain -no acute change, no evidence of CVA - patient follows with Dr. Ashley for chronic white matter changes notes on brain MRIs; [facility] neurology consult placed-appreciate input -possible BPPV no further neuro imaging needed recommend to start on low dose aspirin 81 mg daily for chronic white mater changes in noted in MRI of brain -possible small vessel ischemic disease -PRN meclizine - PT consulted for Romina -does no have any symptom of dizzy spell today repeat CT head without contrast ordered this AM for evaluation of possible minimum left facial droop no acute change noted in CT head pt remains asymptomatic ambulating independently , no obvious facial droop noted stable to be discharged home PROLONGED QTC resolved Qtc 458 today HX CLL - baseline WBCs ~ high 20Ks-low 30Ks -cont out pt follow up DEPRESSION, ANXIETY - continue home meds GERD - continue PPI and H2 blair DVT PROPHYLAXIS - SQ Lovenox DISPOSITION Discharge home today Vital Signs: Date Time Temp Pulse Resp B/P Pulse Ox O2 Delivery O2 Flow Rate FiO2 06/26/16 12:00 99 Room Air 06/26/16 11:51 37.2 76 16 132/78 99 Room Air 06/26/16 08:45 97 Room Air 06/26/16 07:45 36.6 85 16 131/72 97 Room Air 06/26/16 04:43 37.4 89 22 136/83 97 Room Air 06/26/16 04:00 97 Room Air 06/25/16 23:59 97 Room Air 06/25/16 23:52 36.7 82 22 144/83 97 Room Air 06/25/16 20:05 36.7 75 20 122/81 99 Room Air 06/25/16 16:27 36.7 84 18 126/81 Lab Results: Results Past 24 Hours Test 06/26/16 05:49 06/26/16 06:18 Range/Units White Blood Count 32.58 4.8-10.8 K/uL Red Blood Count 4.38 4.2-5.4 M/uL Hemoglobin 12.5 12.0-16.0 g/dL Hematocrit 37.7 37-47 % Mean Corpuscular Volume 86.1 80-100 fL Mean Corpuscular Hemoglobin 28.5 25-34 pg Mean Corpuscular Hemoglobin Concent 33.2 32-36 g/dl Platelet Count 193 130-400 K/uL Mean Platelet Volume 11.3 7.4-10.4 fL Neutrophils (%) (Auto) 23.4 % Lymphocytes (%) (Auto) 72.9 % Monocytes (%) (Auto) 3.2 % Eosinophils (%) (Auto) 0.2 % Basophils (%) (Auto) 0.1 % Neutrophils # (Auto) 7.59 1.4-6.5 K/uL Lymphocytes # (Auto) 23.76 1.2-3.4 K/uL Monocytes # (Auto) 1.05 0.11-0.59 K/uL Eosinophils # (Auto) 0.07 0-0.5 K/uL Basophils # (Auto) 0.04 0-0.2 K/uL RDW Standard Deviation 42.4 36.4-46.3 fL RDW Coefficient of Variation 13.5 11.5-14.5 % Immature Granulocyte % (Auto) 0.2 % Immature Granulocyte # (Auto) 0.07 0.00-0.02 K/uL Sodium Level 144 136-145 mmol/L Potassium Level 3.3 3.5-5.1 mmol/L Chloride Level 111 98-107 mmol/L Carbon Dioxide Level 24 21-32 mmol/L Anion Gap 9.0 3-11 mmol/L Blood Urea Nitrogen 12 7-18 mg/dl Creatinine 0.62 0.60-1.20 mg/dl Est Creatinine Clear Calc Drug Dose 103.8 ml/min Estimated GFR () 123.6 Estimated GFR (Non- 106.6 BUN/Creatinine Ratio 18.9 10-20 Random Glucose 84 70-99 mg/dl Calcium Level 8.0 8.5-10.1 mg/dl Triglycerides Level 103 0-150 mg/dl Cholesterol Level 149 0-200 mg/dl HDL Cholesterol 57 mg/dl LDL Cholesterol, Calculated 71 mg/dl VLDL Cholesterol, Calculated 21 mg/dl Cholesterol/HDL Ratio 2.6 Urine Color YELLOW Urine Appearance CLEAR CLEAR Urine pH 6.0 4.5-7.5 Urine Specific [place] 1.025 1.000-1.030 Urine Protein NEG NEG Urine Glucose (UA) NEG NEG Urine Ketones 3+ NEG Urine Occult Blood NEG NEG Urine Nitrite NEG NEG Urine Bilirubin NEG NEG Urine Urobilinogen NEG NEG Urine Leukocyte Esterase NEG NEG
--- NOTE | 2016-06-26 16:16 | Discharge Summary ---
Discharge Summary Date of Service June 26, 2016. Discharge Summary Admission Date: June 25, 2016 at 13:42 Discharge Date: June 26, 2016 Discharge Disposition: Home Principal Diagnosis: DIZZY SPELL , POSSIBLE BENIGN POSITIONAL VERTIGO Procedures: CT HEAD WITH OUT CONTRAST -NO EVIDENCE OF ACUTE CVA MRI OF BRAIN : IMPRESSION: No significant change compared to the prior study. No acute intracranial abnormality. Stable scattered foci of nonspecific demyelination within the white matter of the supratentorial brain. MRA OF BRAIN : IMPRESSION: Unremarkable MR angiography of the [place]. Consultations: NEUROLOGY ; [facility] Medication Reconciliation New Medications: Aspirin (Aspirin Ec) 81 Mg Tab 1 TAB PO DAILY for 30 Days, #30 TABS 3 Refills Meclizine HCl (Meclizine HCl) 25 Mg Tab 1 TAB PO Q8 PRN for Dizziness or Vertigo for 30 Days, #90 TABS 1 Refill Continued Medications: Albuterol Hfa (Ventolin Hfa) 200 Puffs/05611 Mcg Aers 2 PUFFS INH QID PRN for SOB/Wheezing, #1 INHALER Ascorbic Acid (Vitamin C) 1,000 Mg Tab 1000 MG PO DAILY Betamethasone Dipropionate Aug (Augmented Betamethasone D) 0.05 % Lot 1 APPLN TOP BID PRN for HANDS Clotrimazole (Lotrimin 1%) 90 Appln/30 Gm Cr 1 APPLN TOP UD Dicyclomine Hcl (Dicyclomine Hcl) 10 Mg Cap 1 CAP PO BID PRN for abdominal pain for 30 Days, #60 CAP 11 Refills Fluoxetine (Prozac) 10 Mg Cap 10 MG PO DAILY, CAP Fluticasone Propionate (Nasal) (Flonase Allergy Relief) 50 Mcg/Act Spr 2 SPRAY DANYELLE DAILY Gabapentin (Neurontin) 300 Mg Cap 300 MG PO DAILY, 0 Refills Hydrocortisone (Topical) (Hydrocortisone) 2.5 % Oin 1 APPLN TOP HS PRN for RASH for 5 Days, #30 GM Levothyroxine Sodium (Levothyroxine Sodium) 125 Mcg Tab 1 TAB PO DAILY for 30 Days, #30 TAB 5 Refills Loratadine & Pseudoephedrine (Claritin-D 12 Hour) 1 Tab Tab 1 TAB PO BID PRN for Nasal Congestion for 20 Days Melatonin-Pyridoxine (Melatonin) 1 Tab Tab 0.5 MG PO HS Modafinil (Provigil) 100 Mg Tab 100 MG PO DAILY, TAB Multivitamins/Minerals (Mvi With Minerals) Tab 1 TAB PO DAILY, TAB Naproxen (Naprosyn) 500 Mg Tab 500 MG PO BID PRN for Pain, TAB Omeprazole (Prilosec) 20 Mg Cap 20 MG PO DAILY, CAP Probiotic Product (Align) 4 Mg Cap 1 CAP PO DAILY Ranitidine (Zantac) 150 Mg Tab 150 MG PO DAILY, TAB Tramadol (Ultram) 50 Mg Tab 50 MG PO BID PRN for Pain, TAB Triamcinolone Acet (Triamcinolone Acetonide) 0.5 % Cre 1 APPLN TOP PRN UD Ziprasidone Hcl (Geodon) 20 Mg Cap 1 CAP PO DAILY for 30 Days, #30 CAP 2 Refills Referrals At Discharge Follow up Referrals: Neurologist Referral - Within 1-2 Weeks @ [facility] with Mary Horton M.D. Physician Referral - 06/29/16 with Otoniel Guo D.O. Admission Information HPI (per Admitting provider): 50 year old female who presents to the ER with a chief complaint of dizziness and vomiting. Patient reports she was walking at work when she suddenly developed dizziness, nausea, and vomiting. Patient describes everything as spinning and that she couldn't see correctly. She reports she felt generally weak and denied any unilateral weakness, numbness, tingling, or slurred speech. She denies headache. She felt diaphoretic. She had multiple episodes of vomiting. She denies hematemesis or coffee ground emesis. She reports she otherwise has been feeling well recently. She denies chest pain and shortness of breath. No abdominal pain or diarrhea. No fever or chills. She denies any urinary symptoms. In the ER, patient's head CT is negative. She was treated with IVF, Zofran, and Valium and reports improvement in her symptoms. Physical Exam (per Admitting): General Appearance: no apparent distress Head: normocephalic Eyes: + pertinent finding (vertical nystagmus) ENT: hearing grossly normal Neck: supple, no JVD Respiratory/Chest: lungs clear, normal breath sounds, no respiratory distress Cardiovascular: regular rate, rhythm, no edema, normal peripheral pulses Abdomen/GI: normal bowel sounds, non tender, soft Extremities/Musculoskelatal: normal inspection, no calf tenderness Neurologic/Psych: no motor/sensory deficits, alert, normal mood/affect, oriented x 3 Skin: normal color, warm/dry Hospital Course DIZZINESS, LIKELY BPPV - patient presented with sudden onset of dizziness and vomiting; CT head in ER negative; patient improving with IVF, Zofran, and Valium - symptom has resolved since admission, feels much better after getting IVF -MRI /MRA of brain -no acute change, no evidence of CVA - patient follows with Dr. Ashley for chronic white matter changes notes on brain MRIs; [facility]-appreciate input -possible BPPV no further neuro imaging needed recommend to start on low dose aspirin 81 mg daily for chronic white mater changes in noted in MRI of brain -possible small vessel ischemic disease -PRN meclizine - PT consulted for Romina -does no have any symptom of dizzy spell today repeat CT head without contrast ordered this AM for evaluation of possible minimum left facial droop no acute change noted in CT head pt remains asymptomatic ambulating independently , no obvious facial droop noted stable to be discharged home PROLONGED QTC resolved Qtc 458 today HX CLL - baseline WBCs ~ high 20Ks-low 30Ks -cont out pt follow up DEPRESSION, ANXIETY - continue home meds GERD - continue PPI and H2 blair DVT PROPHYLAXIS - SQ Lovenox DISPOSITION Discharge home today Discharge Instructions Discharge Instructions Date of Service June 26, 2016. Admission Reason for Admission: Vertigo Discharge Discharge Diagnosis / Problem: DIZZY SPELL , POSSIBLE BENIGN POSITIONAL VERTIGO Discharge Goals Goal(s): Improve disease control, Diagnostic testing Activity Recommendations Activity Limitations: resume your previous activity . Instructions / Follow-Up Instructions / Follow-Up HOSPITAL FOLLOW UP ON 06/29/2016 @ 11:[address] Otoniel Guo, DO General Internal Medicine [facility] YOU STARTED ON ASPIRIN LOW DOSE 81 MG DAILY FOR FUTURE STROKE PROPHYLAXIS PLEASE TAKE WITH FULL STOMACH YOU MAY TAKE MECLIZINE 25 MG BY MOUTH EVERY 8 HRS NEED FOR DIZZY SPELL FOLLOW UP WITH YOUR NEUROLOGIST DR HORTON IN 1-2 WEEKS,PLEASE CALL OFFICE FOR APPOINTMENT Current Hospital Diet Patient's current hospital diet: Regular Diet Discharge Diet Recommended Diet: Regular Diet Pending Studies Studies pending at discharge: no Laboratory Results Hemoglobin A1c Test 06/25/16 11:20 Range/Units Estimated Average Glucose 126 mg/dl Hemoglobin A1c 6.0 H 4.5-5.6 % Lipid Panel Test 06/26/16 05:49 Range/Units Triglycerides Level 103 0-150 mg/dl Cholesterol Level 149 0-200 mg/dl HDL Cholesterol 57 mg/dl Cholesterol/HDL Ratio 2.6 LDL Cholesterol, Calculated 71 mg/dl Medical Emergencies . Who to Call and When: Medical Emergencies: If at any time you feel your situation is an emergency, please call 911 immediately. . Non-Emergent Contact Non-Emergency issues call your: Primary Care Provider . . "Provider Documentation" section prepared by Kat Mendiola. . VTE Core Measure Inpt VTE Proph given/why not?: Enoxaparin (Lovenox)SQ Additional Copies To Otoniel Guo D.O. Roy, E. Pierre, M.D.
== END 2016-06-26 17:19 | disposition home or self-care (01) ==
LOC: ENRESERVDT → ENRESERVTM → EDBD 11:06 → C.EDC 11:08 → C.2E 13:42
PROVIDERS: ADMIT Hospitalist; ATTEND Hospitalist
DX: R42 Dizziness and giddiness (principal); R51 Headache; R11.2 Nausea with vomiting, unspecified; F32.9 Major depressive disorder, single episode, unspecified; C91.10 Chronic lymphocytic leukemia of B-cell type not having achieved remission; K21.9 Gastro-esophageal reflux disease without esophagitis; E03.9 Hypothyroidism, unspecified

== ENCOUNTER → 2017-09-02 | Outpatient (CLI) | payer OTHER ==
[~2017-09-02] MED LIST changes: -ABL/5 PO; +ANT25 PO; +ASPI81TA28 PO; -CARB0.5D OPB; +DICY10CA12 PO; -LEVO112T18 PO; +LEVO125T5 PO; +MISC4CAP PO; -NAPR-1169 PO; +NAPR-22 PO; +RANI150T85 PO; +ZIPR20CA PO; -ZNTT/150 PO
== END | disposition home or self-care (01) ==
LOC: C.RDSM 12:26
PROVIDERS: ATTEND Orthopaedic Surgery Sports Medicine
DX: M25.561 Pain in right knee (principal); Z88.8 Allergy status to other drugs, medicaments and biological substances; Z91.048 Other nonmedicinal substance allergy status